=== PATIENT | female | born 1990 | race Caucasian/White ===

== ENCOUNTER 2019-02-22 09:10 | Inpatient (IN) | payer BC ==
[~2019-02-22] VITALS: Ht 154.9 cm; Wt 68.6 kg
[2019-02-22] VITALS (22 sets, daily range): BP systolic 110–154; BP diastolic 57–93; PULSE 60–93; TEMP 97.2–98.6
--- NOTE | 2019-02-22 09:15 | NUR ---
Pt arrives on unit ambulatory with spouse. States regular ctx that started at 0400 that occur every 3-5 minutes. Pt rates pain /10. Denies vaginal bleeding and LOF. Reports GFM. Changed into clean gown. EFM and toco applied. VSS SVE per this RN /-2 with JOSUE. Admission assessment completed. Pt updated on POC. Bed locked in low position call light within reach.
[2019-02-22] MEDS ORDERED: PRENATAL MVI (09:24)
[2019-02-22 10:50] LABS: BASO % 0.3 % (0.0-2.0); EOS % 0.3 % (0-4.0); GRAN # 9.8 (1.4-6.5); GRAN % 83.8 % (42.2-75.2); HEMATOCRIT 37.1 % (37.0-47.0); LYMPH # 1.1 (1.2-3.4); LYMPH % 9.6 % (20.0-51.0); MEAN CELL VOLUME 89 fl (80.0-100.0); MEAN CORPUSCULAR HEMOGLOBIN 29 pg (27.0-31.0); MEAN CORPUSCULAR HGB CONC 32 g/dl (33.0-37.0); MEAN PLATELET VOLUME 11.9 fl (7.4-10.4); MONO # 0.6 (0.1-0.6); MONO % 5.2 % (1.7-9.3); PLATELET COUNT 176 K/mm3 (130-400); RED BLOOD COUNT 4.16 M/mm3 (4.10-5.30); REDCELL DISTRIBUTION WIDTH-CV 12.8 % (11.5-14.5)
--- NOTE | 2019-02-22 11:15 | NUR ---
AMITA NOTIFIED PATIENT REQUESTS EPIDURAL AT THIS TIME.
--- NOTE | 2019-02-22 11:16 | NUR ---
1116-Patient sitting upright on bedside for epidural placement. RN adjsuts EFM, difficulty tracing due to maternal positioning. 1120-ZENA Menjivar to room. Reviews epidural placement with patient and answers questions. Time out complete. 1126-Single shot administered by ZENA Menjivar. Patient tolerates procedure well. VSS,see flow record. 1130-Patient repositioned WL. 1152- called unit requests SVE 1154-Dewey to DD, clear yellow urine return, SVE /-2 Repositoned WL with peanut ball. Dr. Huizar updated, see physician notification. 1205-Pitocin started per MD orders, see EMAR.
--- NOTE | 2019-02-22 13:05 | NUR ---
1305-notified MD patient 7-/-1 1320- on unit, SVE /+1, sampson d/c, set up for delivery 1328-Patient begins pushing with MD at bedside through contractions, moves vertex well. 1337-Spontaneous delivery of head followed by body. Infant mouth and nose suctioned by MD. Viable male infant to mothers abdomen, cord clamped x2 and cut by FOB. Care of infant assumed by NATALIA Man. Apgars 06/24/10 1339-Spontaneous delivery of intact placenta by MD, fundal massage firm, lochia WNL EBL 200ml. Pitocin bolus per MD orders, Intact perineum avis care provided.
--- NOTE | 2019-02-22 17:45 | NUR ---
2066-Patient up to bathroom, voids 200ml clear yellow urine, avis care provided. taken via wheelchair to room 216, oriented to room.
[2019-02-23 01:15] VITALS: BP 127/67; PULSE 60; TEMP 98.1
[2019-02-23 09:00] VITALS: BP 121/75; PULSE 86; TEMP 98.1
[2019-02-23] MEDS ORDERED: IBU800 M1 PO (09:52)
== END 2019-02-23 15:45 | disposition home or self-care (01) | DRG 807 ==
LOC: LDRO 09:10 → LDR 09:15 → LDRO 09:56 → OB 18:00
PROVIDERS: ADMIT Obstetrics & Gynecology
PROC: 10E0XZZ Delivery of Products of Conception, External Approach (ICD-10-PCS; principal; 2019-02-22)
DX: O34.211 Maternal care for low transverse scar from previous cesarean delivery (principal); Z37.0 Single live birth; Z3A.39 39 weeks gestation of pregnancy
CPT/HCPCS: J2590; J2795; J7120